=== PATIENT | female | born 1945 | race Caucasian/White ===

== ENCOUNTER → 2018-03-03 19:56 | Outpatient (REF) | payer MEDICARE, MEDICAID, SELFPAY ==
[2018-03-03 21:41] LABS: Amphetamine/Metha Screen,Urine Negative ng/mL (<1000); Barbiturates Screen,Urine Negative ng/mL (<200); Benzodiazepines Screen,Urine Negative ng/mL (<200); Cannabinoid Screen,Urine Negative ng/mL (<50); Cocaine Screen,Urine Negative ng/mL (<300); Methadone Screen,Urine Negative ng/mL (<300); Opiate Screen,Urine Negative ng/mL (<300); Phencyclidine Screen,Urine Negative ng/mL (<25)
== END ==
LOC: LAB 19:56
PROVIDERS: Visit Provider Family Medicine
DX: Z79.899 Other long term (current) drug therapy (principal)
CPT/HCPCS: 80305

== ENCOUNTER 2020-02-25 17:40 | Observation (INO) | payer MEDICARE, MEDICAID, SELFPAY ==
[2020-02-25 17:42] VITALS: BP 130/70; PULSE 89; RESP 16; TEMP 36.6; O2SAT 98; BMI 55.0
[2020-02-25 18:06] LABS: Basophils # 0.1 K/mm3 (0-0.2); Basophils % 0.7 % (0.1-2.0); Eosinophils # 0.3 K/mm3 (0.0-0.4); Eosinophils % 2.1 % (0.1-12.0); Hematocrit 39.9 % (37.0-47.0); Hemoglobin 13.8 g/dL (12.2-16.2); Lymphocytes # 2.2 K/mm3 (0.7-4.5); Lymphocytes % 17.8 % (10-50); Mean Corpuscular HGB Conc 34.5 g/dL (31.8-35.4); Mean Corpuscular Hemoglobin 28.5 pg (27.0-31.2); Mean Corpuscular Volume 82.5 fl (81-99); Mean Platelet Volume 9.3 fl (7.4-10.4); Monocytes # 0.6 K/mm3 (0.1-1.0); Monocytes % 4.9 % (1.7-9.3); Neutrophils # 9.3 K/mm3 (1.8-7.8); Neutrophils % 74.3 % (37.0-80.0); Platelet Count 366 K/mm3 (142-424); Red Blood Count 4.83 M/mm3 (4.20-5.40); Red Cell Distribution Width 14.6 % (11.5-17.5); White Blood Count 12.5 K/mm3 (4.8-10.8)
--- NOTE | 2020-02-25 18:06 | CT_ITS ---
PROCEDURE: CT HIP RT WO CON CLINICAL HISTORY: fx femoral head rt Pain, fracture, fall with injury and pain COMPARISON: No exams were available for comparison TECHNIQUE: Axial images obtained with sagittal and coronal reformats. All CT scans at the facility use one or more dose reduction, viz: automated exposure control, ma/kV adjustment per patient size (including targeted exams where dose is matched to indication, i.e. head), or iterative reconstruction technique. FINDINGS: There is a minimally displaced subcapital right femoral neck fracture. Fracture appears subacute. There is 1 cm lateral displacement of the distal fracture fragment with mild foreshortening. The bony margins are somewhat well circumscribed with some early sclerosis noted at the fracture site but no significant callus formation. Soft tissue prominence noted at the hip joint anteriorly and posteriorly. Femoral head is located. Incidental findings include constipation with large amount of stool in distended rectum IMPRESSION: Minimally displaced subacute subcapital right femoral neck fracture Dictated by: Praneeth Arreguin MD 02/26/2020 09:23 Electronically signed by Praneeth Arreguin MD in [place] 02/26/2020 09:23
[2020-02-25 18:09] LABS: Chloride 102 mmol/L (98-107); Potassium 3.9 mmoL/L (3.5-5.1); Sodium 137 mmol/L (136-145)
[2020-02-25 18:12] LABS: Alanine Aminotransferase 69 U/L (12-78); Albumin Level 3.4 g/dl (3.5-5.0); Albumin/Globulin Ratio 1.1 (1.1-1.8); Alkaline Phosphatase 113 U/L (38-126); Anion Gap 12.9 mEq/L (5-15); Aspartate Amino Transferase 37 U/L (14-36); Bilirubin,Total 0.6 mg/dl (0.2-1.3); Blood Urea Nitrogen 14 mg/dl (7-17); Carbon Dioxide 26 mmol/L (22.0-30.0); Creatinine Clearance Estimated 44 mL/min (50-200); Estimated Glomerular Filt Rate 156 ml/min (>60); GFR (African American) 189 ML/MIN (>60); Globulin 3.2 g/dL (1.3-3.2); Total Protein,Serum 6.6 g/dl (6.3-8.2)
[2020-02-25 18:13] LABS: Glucose 144 mg/dl (74-100)
[2020-02-25 18:56] LABS: Microscopic, Urine URINE MICROSCOPIC (MICROSCOPIC)
[2020-02-25 19:04] LABS: Appearance,Urine CLEAR (Clear); Bilirubin,Urine Negative (Negative); Blood, Urine Negative (Negative); Color,Urine YELLOW (Yellow); Glucose,Urine (UA) Negative (Negative); Ketones,Urine Negative (Negative); Leukocyte Esterase,Urine TRACE (Negative); Nitrate,Urine POSITIVE (Negative); Protein,Urine Negative (Negative); Specific Gravity, Urine 1.015 (1.005-1.030); Urobilinogen,Urine 0.2 EU/dl (0.2)
[2020-02-25 19:16] LABS: Bacteria,Urine 4+ /lpf; Squamous Epithelial Cell,Urine Occasional #/hpf (0-5); WBC,Urine Occasional #/hpf (0-3)
--- NOTE | 2020-02-25 19:19 | HMH.EDGENADL ---
ED Disposition Clinical Impression: Hip fracture Disposition: Admitted as Observation Condition on Discharge: Good Instructions: DI for Acute Pain -- Adult Referrals: Miah Santiago MD [Primary Care Provider] - - Critical Care Critical Care Time: No Attestation: On , the high probability of a clinically significant, sudden or life threatening deterioration of the following system(s) required my full and direct attention, intervention and personal management. The time I documented below is in addition to time spent performing reported procedures but includes the following listed in this critical care notation. Medical Decision Making - Medical Records Medical records reviewed: Yes: I reviewed the patient's medical records. - John Inquiry Pt receiving controlled substance: No Vital Signs: 02/25/20 17:42 Temperature 98 F Temperature Source Oral Pulse Rate [Left Radial] 89 Respiratory Rate 16 Blood Pressure [Right Arm] 130/70 Blood Pressure Mean [Right Arm] 90 Blood Pressure Position [Right Arm] Sitting 02 Sat by Pulse Oximetry 98 Oxygen Delivery Method Room Air - Lab Data Lab results reviewed: Yes: I reviewed the patient's lab results. Lab Results 02/25/20 17:30: WBC 12.5 H, RBC 4.83, Hgb 13.8, Hct 39.9, MCV 82.5, MCH 28.5, MCHC 34.5, RDW 14.6, Plt Count 366, MPV 9.3, Neut % (Auto) 74.3, Lymph % (Auto) 17.8, [place] % (Auto) 4.9, Eos % (Auto) 2.1, Baso % (Auto) 0.7, Neut # (Auto) 9.3 H, Lymph # (Auto) 2.2, [place] # (Auto) 0.6, Eos # (Auto) 0.3, Baso # (Auto) 0.1 02/25/20 17:30: Sodium 137, Potassium 3.9, Chloride 102, Carbon Dioxide 26, Anion Gap 12.9, BUN 14, Creatinine 0.40 L, Estimated Creat Clear 44, Estimated GFR 156, Est GFR ( Amer) 189, Glucose 144 H, Calcium 9.0, Total Bilirubin 0.6, AST 37 H, ALT 69, Alkaline Phosphatase 113, Total Protein 6.6, Albumin 3.4 L, Globulin 3.2, Albumin/Globulin Ratio 1.1 02/25/20 18:52: Urine Color Yellow, Urine Appearance Clear, Urine pH 7.0, Ur Specific [place] 1.015, Urine Protein Negative, Urine Glucose (UA) Negative, Urine Ketones Negative, Urine Blood Negative, Urine Nitrate Positive, Urine Bilirubin Negative, Urine Urobilinogen 0.2, Ur Leukocyte Esterase Trace, Urine WBC Occasional, Ur Squamous Epith Cells Occasional, Urine Bacteria 4+ Result diagrams: 02/25/20 17:30 02/25/20 17:30 Orders (Tests/Meds): ORDERS Category Date Time Status CT hip RT wo con Stat Cat Scan 02/25/20 18:06 Taken Valproic Acid, (Depakene) Stat Lab 02/25/20 17:30 Received Urine Culture Stat Micro 02/25/20 18:52 Received - CT Data CT Scan: Other (Hip) Time Received: 18:[address] Reviewed: Yes: I have reviewed the patient's CT results, I have viewed the radiologist's interpretation Preliminary Findings: Abnormal (Mildly displaced femoral neck fracture possibly subacute.) General Adult HPI - General Chief complaint: PAIN Stated complaint: pain Time Seen by Provider: 02/25/20 18:00 Mode of Arrival: EMS Limitations: Altered Mental Status Description of Symptoms (Recalled from ER Triage Doc. by RN): to ed per squad pt resident matthias nichols sent for eval due to results of rt hip xray showing a fx. pt fell in december, pt with hx of dementia and does not answer question. rt leg shortened and rotated - History of Present Illness HPI narrative: A 75-year-old female presents the ED from a nursing facility she apparently had a fall about 3 weeks ago and she did complain about right hip pain ever since. They also state has been very difficult for her to ambulate as well. They also noticed one leg was shorter than the other and internally rotated. Otherwise patient is hard to get a long history from secondary to mild to moderate dementia.Patient denies any recent cough or shortness of breath, patient denies any sore throat or headache, patient denies any loss of taste or smell, patient denies any malaise or fatigue, patient denies any abdominal pain nausea vomiting or diarr
[2020-02-25 19:51] VITALS: BP 107/65; PULSE 80; RESP 14; TEMP 36.6; O2SAT 94
[2020-02-25 20:09] VITALS: BP 116/70; PULSE 80; RESP 16; TEMP 36.9; O2SAT 94; BMI 18.2
--- NOTE | 2020-02-25 20:09 | PC.NURSE ---
PT ARRIVED VIA STRETCHER TO FLOOR FROM ED @ 2006.
[2020-02-25 20:26] LABS: Valproic Acid, (Depakene) 15.8 ug/ml (50-100)
--- NOTE | 2020-02-25 21:44 | XR_ITS ---
PROCEDURE: XR HIP RT 2-3V W/PELVIS CLINICAL INDICATION: R hip fracture Follow-up hip fracture COMPARISON: CT HIP RT WO CON from 02/25/2020 FINDINGS: Mildly displaced subcapital right femoral neck fracture is present. There is superior displacement of the distal fracture fragment with foreshortening by approximately 1 cm. Femoral head is located. Rectal fecal impaction noted. Carpio catheter is present. There is diffuse osteopenia. IMPRESSION: Mildly displaced right subcapital femoral neck fracture Dictated by: Praneeth Arreguin MD 02/26/2020 07:23 Electronically signed by Praneeth Arreguin MD in [place] 02/26/2020 07:23
[2020-02-26 04:00] VITALS: BP 127/72; PULSE 76; RESP 16; TEMP 37.3; O2SAT 98
--- NOTE | 2020-02-26 04:25 | PC.NURSE ---
PT IS CONFUSED, WITH MUMBLED SPEECH. PT CAN ANSWER YES AND NO QUESTIONS APPROPRIATELY AT TIMES, BUT OTHER TIMES CANNOT. PT UNABLE TO STATE HER NAME, , OR WHERE SHE IS AT. PT X2 ASSIST. F/C PRESENT DRAINING BRIGHT YELLOW URINE. PT IS A POOR HISTORIAN, NOT ALL ADMISSION QUESTIONS ANSWERED. PT TOLERATING RA WELL. PT BODY MOVEMENT SHOWED THAT SHE WAS HAVING PAIN IN HER R HIP THIS MORNING. ADMINISTERED MORPHINE PER MAR. ON REASSESSMENT, PT RESTING IN BED WITH EYES CLOSED. BED SAFETY ON. PT TOLERATING NPO DIET WELL. NO OTHER COMPLAINTS THUS FAR, VSS WILL CONTINUE TO MONITOR.
[2020-02-26 04:50] VITALS: BMI 18.2
[2020-02-26 07:13] LABS: Basophils # 0.1 K/mm3 (0-0.2); Basophils % 0.7 % (0.1-2.0); Eosinophils # 0.2 K/mm3 (0.0-0.4); Eosinophils % 1.1 % (0.1-12.0); Hematocrit 38.6 % (37.0-47.0); Hemoglobin 13.7 g/dL (12.2-16.2); Lymphocytes # 2.5 K/mm3 (0.7-4.5); Lymphocytes % 17.1 % (10-50); Mean Corpuscular HGB Conc 35.4 g/dL (31.8-35.4); Mean Corpuscular Hemoglobin 29.4 pg (27.0-31.2); Mean Platelet Volume 8.5 fl (7.4-10.4); Monocytes # 0.7 K/mm3 (0.1-1.0); Monocytes % 4.6 % (1.7-9.3); Neutrophils # 11.2 K/mm3 (1.8-7.8); Neutrophils % 76.6 % (37.0-80.0); Platelet Count 382 K/mm3 (142-424); Red Blood Count 4.65 M/mm3 (4.20-5.40); Red Cell Distribution Width 14.5 % (11.5-17.5); White Blood Count 14.6 K/mm3 (4.8-10.8)
[2020-02-26 07:15] VITALS: BP 122/78; PULSE 106; RESP 18; TEMP 36.7; O2SAT 96
[2020-02-26 07:18] LABS: Chloride 103 mmol/L (98-107); Potassium 4.4 mmoL/L (3.5-5.1); Sodium 137 mmol/L (136-145)
[2020-02-26 07:20] LABS: Alanine Aminotransferase 61 U/L (12-78); Aspartate Amino Transferase 26 U/L (14-36); Blood Urea Nitrogen 14 mg/dl (7-17); Creatinine Clearance Estimated 39 mL/min (50-200); Estimated Glomerular Filt Rate 121 ml/min (>60); GFR (African American) 146 ML/MIN (>60)
[2020-02-26 07:21] LABS: Albumin Level 3.4 g/dl (3.5-5.0); Albumin/Globulin Ratio 1.1 (1.1-1.8); Alkaline Phosphatase 116 U/L (38-126); Anion Gap 12.4 mEq/L (5-15); Bilirubin,Total 0.5 mg/dl (0.2-1.3); Calcium 9.1 mg/dl (8.4-10.2); Carbon Dioxide 26 mmol/L (22.0-30.0); Globulin 3.2 g/dL (1.3-3.2); Glucose 122 mg/dl (74-100); Total Protein,Serum 6.6 g/dl (6.3-8.2)
--- NOTE | 2020-02-26 07:27 | HMH.PHAVTE ---
[facility] Pharmacy VTE Monitoring - Patient Demographics Admission date: 02/25/20 Report Date: 02/26/20 Time: 07:27 Allergies/Adverse Reactions: Patient Allergies Sulfa (Sulfonamide Antibiotics) Allergy (Verified 02/25/20 17:48) Height: 1.65 m Weight: 49.668 kg Patient Problems: Current Active Problems Hip fracture (Acute) - VTE Risk Labs: VTE Related Lab Results Hgb 13.7 g/dL (12.2-16.2) 02/26/20 07:05 Hct 38.6 % (37.0-47.0) 02/26/20 07:05 Plt Count 382 K/mm3 (142-424) 02/26/20 07:05 BUN 14 mg/dl (7-17) 02/26/20 07:05 Creatinine 0.50 mg/dl (0.52-1.04) L D 02/26/20 07:05 Estimated Creat Clear 39 mL/min (50-200) 02/26/20 07:05 Clinical Trial Participant: No - Prophylaxis VTE Prophylaxis Ordered?: Yes Types of VTE Prophylaxis: TEDS Knee High Location of Applied Device: Bilateral Lower Extremeties
--- NOTE | 2020-02-26 07:52 | HMH.HP ---
*Admission Date: 02/25/20 *Chief complaint: Leg pain *History of present illness: Ms. Moran is a pleasant 75-year-old female with severe dementia, limited mobility, predominantly nonverbal, who presented to the ER from [facility]. Reportedly she fell about 3 weeks ago with no significant complaint of pain at the time or appreciated leg length discrepancy. Over the past 3 weeks however she has had noted worsening discomfort with movement that localizes to her right hip. Nursing became concerned for pain or injury. She was brought to the ER for further assessment. Patient unable to give any history secondary to her dementia. No report of recent cough or shortness of breath, sore throat or headache. On interview on rounds, patient opens eyes to verbal stimuli but has no meaningful response. Unable to answer any questions or focalized to pain. Lying on her left side in position. No acute distress [facility] History I have reviewed the patient's past medical history: Yes (Obtained from [facility], unable to get any response from patient) Medical History: Reports:: Dementia *Have you ever received a pneumonia vaccine?: Yes *Have you received a flu vaccine this season?: Yes - *Social History Alcohol Intake: never *Occupational Status:: disabled Housing: other Household Members: other *Travel in the last 8 weeks: None Family Hx:: Unable to obtain Review of Systems - Review of Systems Review of systems:: unable to obtain (Patient unable to give response) Meds Home Medications Medication Instructions Recorded Confirmed Type Acetaminophen 500 mg PO TIDP PRN 02/25/20 02/26/20 History Aspirin 81 mg PO DAILY 02/25/20 02/26/20 History Divalproex Sodium [Depakote] 125 mg PO BID 02/25/20 02/26/20 History Donepezil HCl [Donepezil ODT 10mg] 10 mg PO HS 02/25/20 02/25/20 History Famotidine [Pepcid 20mg Tablet] 20 mg PO DAILY 02/25/20 02/25/20 History Loperamide HCl [Imodium 2 mg 4 mg PO NEEDED PRN 02/25/20 02/25/20 History capsule] Memantine HCl [Memantine 10mg 10 mg PO BID 02/25/20 02/26/20 History Tablet] Multivitamin/Iron/Folic Acid 1 tab PO DAILY 02/25/20 02/26/20 History [Centrum Adults Tablet] Sennosides [Senokot 8.6mg tablet] 8.6 mg PO DAILY 02/25/20 02/26/20 History Mirtazapine 7.5 mg PO HS 02/26/20 02/26/20 History Allergies Allergy/AdvReac Type Severity Reaction Status Date / Time Sulfa (Sulfonamide Allergy Verified 02/25/20 17:48 Antibiotics) Exam Vital signs and Labs for Last 24 Hours: Temp Pulse Resp BP Pulse Ox 98.0 F 106 H 18 122/78 96 02/26/20 07:15 02/26/20 07:15 02/26/20 07:15 02/26/20 07:15 02/26/20 07:15 Laboratory Results - last 24 hr 02/25/20 17:30: WBC 12.5 H, RBC 4.83, Hgb 13.8, Hct 39.9, MCV 82.5, MCH 28.5, MCHC 34.5, RDW 14.6, Plt Count 366, MPV 9.3, Neut % (Auto) 74.3, Lymph % (Auto) 17.8, [place] % (Auto) 4.9, Eos % (Auto) 2.1, Baso % (Auto) 0.7, Neut # (Auto) 9.3 H, Lymph # (Auto) 2.2, [place] # (Auto) 0.6, Eos # (Auto) 0.3, Baso # (Auto) 0.1 02/25/20 17:30: Sodium 137, Potassium 3.9, Chloride 102, Carbon Dioxide 26, Anion Gap 12.9, BUN 14, Creatinine 0.40 L, Estimated Creat Clear 44, Estimated GFR 156, Est GFR ( Amer) 189, Glucose 144 H, Calcium 9.0, Total Bilirubin 0.6, AST 37 H, ALT 69, Alkaline Phosphatase 113, Total Protein 6.6, Albumin 3.4 L, Globulin 3.2, Albumin/Globulin Ratio 1.1 02/25/20 17:30: Total Valproic Acid 15.8 L 02/25/20 18:52: Urine Color Yellow, Urine Appearance Clear, Urine pH 7.0, Ur Specific [place] 1.015, Urine Protein Negative, Urine Glucose (UA) Negative, Urine Ketones Negative, Urine Blood Negative, Urine Nitrate Positive, Urine Bilirubin Negative, Urine Urobilinogen 0.2, Ur Leukocyte Esterase Trace, Urine WBC Occasional, Ur Squamous Epith Cells Occasional, Urine Bacteria 4+ 02/26/20 07:05: WBC 14.6 H, RBC 4.65, Hgb 13.7, Hct 38.6, MCV 83.0, MCH 29.4, MCHC 35.4, RDW 14.5, Plt Count 382, MPV 8.5, Neut %
--- NOTE | 2020-02-26 08:04 | SW/DCPLANNER ---
PATIENT PRESENTED INTO THE HOSPITAL FROM [facility] AFTER A FALL ABOUT 3 WEEKS AGO AND STATED CAN NOT WALK ON IT NOW... XRAYS REVEALED A RIGHT HIP FRACTURE.. SHE IS ON A BEDHOLD AND WILL RETURN BACK THERE ONCE SHE IS MEDICALLY STABLE TO DO SO... WILL HAVE A SURGICAL CONSULT AND HAVE SURGERY POSSIBLY TODAY.
[2020-02-26 08:23] LABS: Coronavirus 19 IgG Antibody Negative (Negative); Coronavirus 19 IgM Antibody Negative (Negative)
--- NOTE | 2020-02-26 09:57 | CARE MANAGER ---
Spoke with Tish at [facility] regarding patient's prior functional level before December when she fell. Tish states patient is non-ambulatory and has dementia. She does not speak typically. Contacted Paulo Too at number on file to discuss plans. PCPs and ortho recommend to not proceed with surgery as risks outweigh benefits. PCP suggests discharge to care home with Hospice. Mr. Gage wants to discuss with his mom, the patient's sister, since she is POA and will call me back, but anticipate discharge to care home with Hospice will be acceptable. JCARLOS Ralph, CM
--- NOTE | 2020-02-26 10:00 | HMH.PHAINT ---
MEDICATION RECONCILIATION COMPLETED USING MEDICATION LIST FROM [facility]IOR [facility].
--- NOTE | 2020-02-26 10:26 | HMH.ORTHOCON ---
*Admission Date: 02/25/20 *Reason for consult:: R hip fracture *History of present illness: 75yo F admitted through the ED from a local SNF with a R hip fracture. She sustained a fall around 3 weeks ago; circumstances around the fall are unknown. Per report she is non-ambulatory at baseline and suffers from moderate dementia. Currently she is NOT oriented, AAO x 0. Does not answer questions or vocalize pain in the R hip. Exam does not elicit pain. She does not respond to voice questions/commands and does not make eye contact. In no distress. Review of Systems - Review of Systems Review of systems:: unable to obtain [facility] History I have reviewed the patient's past medical history: Yes Medical History: Reports:: Dementia *Have you ever received a pneumonia vaccine?: Yes *Have you received a flu vaccine this season?: Yes - *Social History Alcohol Intake: never *Occupational Status:: disabled Housing: other Household Members: other *Travel in the last 8 weeks: None Family Hx:: Unable to obtain Meds Home Medications Medication Instructions Recorded Confirmed Type Acetaminophen 500 mg PO TIDP PRN 02/25/20 02/26/20 History Aspirin 81 mg PO DAILY 02/25/20 02/26/20 History Divalproex Sodium [Depakote] 125 mg PO BID 02/25/20 02/26/20 History Donepezil HCl [Donepezil ODT 10mg] 10 mg PO HS 02/25/20 02/25/20 History Famotidine [Pepcid 20mg Tablet] 20 mg PO DAILY 02/25/20 02/25/20 History Loperamide HCl [Imodium 2 mg 4 mg PO NEEDED PRN 02/25/20 02/25/20 History capsule] Memantine HCl [Memantine 10mg 10 mg PO BID 02/25/20 02/26/20 History Tablet] Multivitamin/Iron/Folic Acid 1 tab PO DAILY 02/25/20 02/26/20 History [Centrum Adults Tablet] Sennosides [Senokot 8.6mg tablet] 8.6 mg PO DAILY 02/25/20 02/26/20 History Mirtazapine 7.5 mg PO HS 02/26/20 02/26/20 History Allergies Allergy/AdvReac Type Severity Reaction Status Date / Time Sulfa (Sulfonamide Allergy Verified 02/25/20 17:48 Antibiotics) Exam Vital signs and Labs for Last 24 Hours: Temp Pulse Resp BP Pulse Ox 98.0 F 106 H 18 122/78 96 02/26/20 07:15 02/26/20 07:15 02/26/20 07:15 02/26/20 07:15 02/26/20 07:15 Laboratory Results - last 24 hr 02/25/20 17:30: WBC 12.5 H, RBC 4.83, Hgb 13.8, Hct 39.9, MCV 82.5, MCH 28.5, MCHC 34.5, RDW 14.6, Plt Count 366, MPV 9.3, Neut % (Auto) 74.3, Lymph % (Auto) 17.8, [place] % (Auto) 4.9, Eos % (Auto) 2.1, Baso % (Auto) 0.7, Neut # (Auto) 9.3 H, Lymph # (Auto) 2.2, [place] # (Auto) 0.6, Eos # (Auto) 0.3, Baso # (Auto) 0.1 02/25/20 17:30: Sodium 137, Potassium 3.9, Chloride 102, Carbon Dioxide 26, Anion Gap 12.9, BUN 14, Creatinine 0.40 L, Estimated Creat Clear 44, Estimated GFR 156, Est GFR ( Amer) 189, Glucose 144 H, Calcium 9.0, Total Bilirubin 0.6, AST 37 H, ALT 69, Alkaline Phosphatase 113, Total Protein 6.6, Albumin 3.4 L, Globulin 3.2, Albumin/Globulin Ratio 1.1 02/25/20 17:30: Total Valproic Acid 15.8 L 02/25/20 18:52: Urine Color Yellow, Urine Appearance Clear, Urine pH 7.0, Ur Specific [place] 1.015, Urine Protein Negative, Urine Glucose (UA) Negative, Urine Ketones Negative, Urine Blood Negative, Urine Nitrate Positive, Urine Bilirubin Negative, Urine Urobilinogen 0.2, Ur Leukocyte Esterase Trace, Urine WBC Occasional, Ur Squamous Epith Cells Occasional, Urine Bacteria 4+ 02/26/20 07:05: Blood Type O Positive, Antibody Screen Negative 02/26/20 07:05: WBC 14.6 H, RBC 4.65, Hgb 13.7, Hct 38.6, MCV 83.0, MCH 29.4, MCHC 35.4, RDW 14.5, Plt Count 382, MPV 8.5, Neut % (Auto) 76.6, Lymph % (Auto) 17.1, [place] % (Auto) 4.6, Eos % (Auto) 1.1, Baso % (Auto) 0.7, Neut # (Auto) 11.2 H, Lymph # (Auto) 2.5, [place] # (Auto) 0.7, Eos # (Auto) 0.2, Baso # (Auto) 0.1 02/26/20 07:05: Sodium 137, Potassium 4.4, Chloride 103, Carbon Dioxide 26, Anion Gap 12.4, BUN 14, Creatinine 0.50 L D, Estimated Creat Clear 39, Estimated GFR 121, Est GFR ( Amer) 146 D, Glucose 122 H, Calcium 9.1, Total Bilirubin 0.5, AST 26 D,
--- NOTE | 2020-02-26 11:52 | PC.NURSE ---
Pt has been resting comfortably thus far this shift. Per Dr. Cade pt will not have surgery and is allowed to eat a regular diet. Have turned and repositioned pt q 2 hrs. CB in reach. Pt speaks very minimally. Will arouse to voice/name. Will cont to mx this shift. VSS at this time.
--- NOTE | 2020-02-26 14:30 | SW/DCPLANNER ---
I have faxed updated patient information to Priscila at [employer] including NEGATIVE COVID screening.
[2020-02-26 15:19] VITALS: BP 120/70; PULSE 100; RESP 18; TEMP 36.6; O2SAT 97
[2020-02-26 19:24] VITALS: BP 120/61; PULSE 88; RESP 16; TEMP 37
--- NOTE | 2020-02-26 19:44 | PC.NURSE ---
No acute changes this shift afternoon.
[2020-02-27 03:52] VITALS: BP 100/61; PULSE 82; RESP 16; TEMP 37.2; O2SAT 95
[2020-02-27 05:00] VITALS: BMI 19.5
--- NOTE | 2020-02-27 07:52 | PC.NURSE ---
PT CONTINUES TO BE UNAWARE OF SURROUNDINGS. UNABLE TO STATE NAME, , OR WHERE SHE IS. PT MAKES NOISES AND HUMS T/O SHIFT WHILE AWAKE. PT HAS RESTED WITH EYES CLOSED T/O MAJORITY OF SHIFT. PT SHOWS NO S/S OF PAIN. F/C PRESENT, DRAINING BRIGHT YELLOW URINE. PT TOLERATING RA WELL. NO COMPLAINTS T/O SHIFT, VSS T/O SHIFT.
[2020-02-27 08:00] VITALS: BP 152/77; PULSE 83; RESP 18; TEMP 36.6; O2SAT 95
--- NOTE | 2020-02-27 08:06 | HMH.DCSUM ---
General - General Admission date:: 02/25/20 Discharge date: 02/27/20 HPI HPI: Ms. Moran is a pleasant 75-year-old female with severe dementia, limited mobility, predominantly nonverbal, who presented to the ER from [facility]. Reportedly she fell about 3 weeks ago with no significant complaint of pain at the time or appreciated leg length discrepancy. Over the past 3 weeks however she has had noted worsening discomfort with movement that localizes to her right hip. Nursing became concerned for pain or injury. She was brought to the ER for further assessment. Patient unable to give any history secondary to her dementia. No report of recent cough or shortness of breath, sore throat or headache. On interview on rounds, patient opens eyes to verbal stimuli but has no meaningful response. Unable to answer any questions or focalized to pain. Lying on her left side in position. No acute distress Hospital Course Hospital Course: Patient was admitted to hospital, orthopedics consultation was obtained and felt that she would need a hemiarthroplasty if definitive repair was undertaken. However, in discussion with her nephew and in review of her medical records, her severe dementia and nonambulatory status and length of time since the fracture seems to tilt the decision making more towards nonoperative intervention/palliative care. Her nephew is in agreement with this and wishes hospice consulted. Plan will be to discharge back to the senior care today with Roxanol for pain, continued palliative care and hospice consultation. Please note that her CODE STATUS has been changed in the hospital by her healthcare surrogate to DNR status. Objective Vital signs: Temp Pulse Resp BP Pulse Ox 99.0 F 82 16 100/61 L 95 02/27/20 03:52 02/27/20 03:52 02/27/20 03:52 02/27/20 03:52 02/27/20 03:52 Narrative: Patient is alert. Response to tactile stimuli noted, nonverbal, does not respond to verbal stimuli or commands. Heart rate regular, anterior lung torres are clear, abdomen soft, movement of legs does not really cause any symptoms of pain, distal pulses are good, no edema noted. Oropharynx clear, ENT exam otherwise clear. Skin without rash. Results Labs on day of discharge: Labs from last 24 hours 02/26/20 07:05 SARS-CoV-2 IgG Ab (Rapid) Negative SARS-CoV-2 IgM Ab (Rapid) Negative DS: Diagnosis - Discharge Diagnosis (1) Dementia Status: Chronic (2) Fracture of femoral neck Status: Acute (3) Hip fracture Status: Acute Discharge Plan - Patient Discharge Instructions ACTIVITY: Bed rest DIET: continue same diet Patient Instructions: Hip Fracture, DI for Hip Fracture - Follow up Plan Disposition: Hospice - Medical Facility Home Medications: Home Medications Medication Instructions Recorded Confirmed Type Acetaminophen 500 mg PO TIDP PRN 02/25/20 02/26/20 History Aspirin 81 mg PO DAILY 02/25/20 02/26/20 History Divalproex Sodium [Depakote] 125 mg PO BID 02/25/20 02/26/20 History Donepezil HCl [Donepezil ODT 10mg] 10 mg PO HS 02/25/20 02/25/20 History Famotidine [Pepcid 20mg Tablet] 20 mg PO DAILY 02/25/20 02/25/20 History Loperamide HCl [Imodium 2 mg 4 mg PO NEEDED PRN 02/25/20 02/25/20 History capsule] Memantine HCl [Memantine 10mg 10 mg PO BID 02/25/20 02/26/20 History Tablet] Multivitamin/Iron/Folic Acid 1 tab PO DAILY 02/25/20 02/26/20 History [Centrum Adults Tablet] Sennosides [Senokot 8.6mg tablet] 8.6 mg PO DAILY 02/25/20 02/26/20 History Mirtazapine 7.5 mg PO HS 02/26/20 02/26/20 History Morphine Sulfate [Roxanol 20mg/mL 10 mg PO Q4HP PRN #30 ml 02/27/20 Rx 1mL oral soln UDC] Prescriptions/Medication Reconciliation: New Morphine Sulfate [Roxanol 20mg/mL 1mL oral soln UDC] 10 mg PO Q4HP PRN #30 ml PRN Reason: Moderate Pain Continued Divalproex Sodium [Depakote] 125 mg PO
--- NOTE | 2020-02-27 09:28 | SW/DCPLANNER ---
CALLED HOSPICE THIS MORNING AND SENT REFERRAL FOR THIS PATIENT TO BE EVALUATED AT THE [facility] FOR HOSPICE SERVICES... FAMILY WAS NOTIFIED AND IN AGREEMENT OF THE PLAN... SHE WILL DISCHARGE BACK TO HER [facility] BED AND I HAVE NOTIFIED THE FACILITY OF HER RETURN....
== END 2020-02-27 09:39 | disposition hospice, inpatient (51) ==
LOC: ER 19:30 → 2ND 20:18
PROVIDERS: Orthopaedic Surgery; Admitting Provider Family Medicine; Emergency Provider Family Medicine; PCP Internal Medicine Adolescent Medicine; Visit Provider Internal Medicine Adolescent Medicine
DX: S72.011A Unspecified intracapsular fracture of right femur, initial encounter for closed fracture (principal); W01.0XXA Fall on same level from slipping, tripping and stumbling without subsequent striking against object, initial encounter; Y92.129 Unspecified place in nursing home as the place of occurrence of the external cause; F03.90 Unspecified dementia, unspecified severity, without behavioral disturbance, psychotic disturbance, mood disturbance, and anxiety; Z74.01 Bed confinement status; Z79.899 Other long term (current) drug therapy
CPT/HCPCS: 36415; 73502; 73700; 80053; 80164; 81001; 85025; 86328; 86850; 87086; 87088; 87186; 99284; G0378; J1335